=== PATIENT | male | born 1960 | race Caucasian/White ===

== ENCOUNTER 2021-01-07 01:54 | Observation (INO) | payer OTHER ==
[~2021-01-07] VITALS: Ht 177.8 cm; Wt 72.6 kg
[2021-01-07 02:01] VITALS: BP 117/82
[2021-01-07 02:44] LABS: ABSOLUTE NEUTROPHILS 3.7 thou/uL (1.4-8.2); BASOPHILS 0.7 % (0.0-2.0); EOSINOPHILS 1.9 % (0.0-3.0); HEMATOCRIT 47.2 % (42.0-52.0); LYMPHOCYTES 29.2 % (24.0-44.0); MCH 34.6 pg (26.0-34.0); MCHC 31.9 g/dL (28.0-37.0); MCV 108.6 fL (80.0-100.0); MONOCYTES 3.7 % (1.0-8.0); PLATELET COUNT 161 thou/uL (150-400); POLYS 64.5 % (36.0-66.0); RBC 4.35 mil/uL (4.50-6.00); RDW 16.2 % (10.5-14.5); WBC 5.7 thou/uL (4.0-11.0)
[2021-01-07 02:45] LABS: URINE BILIRUBIN NEGATIVE (Negative); URINE BLOOD TRACE (Negative); URINE CLARITY CLEAR; URINE COLOR YELLOW; URINE GLUCOSE-RANDOM* 2+ (Negative); URINE KETONES NEGATIVE (Negative); URINE LEUKOCYTES-REFLEX NEGATIVE (Negative); URINE NITRITE-REFLEX NEGATIVE (Negative); URINE PROTEIN (DIPSTICK) 2+ (Negative); URINE SPECIFIC GRAVITY >= 1.030 (1.005-1.035)
[2021-01-07 02:53] LABS: ANION GAP 14 mmol/L (7-16); BUN 19 mg/dL (7-18); CALCIUM 8.2 mg/dL (8.5-10.1); CHLORIDE 103 mmol/L (98-107); CO2 27 mmol/L (21-32); CREATININE 1.4 mg/dL (0.7-1.3); GLUCOSE 261 mg/dL (74-106); POTASSIUM 5.3 mmol/L (3.5-5.1); SODIUM 144 mmol/L (136-145)
[2021-01-07 02:57] LABS: AMP/METHAMP Negative (Negative); BARBITURATES Negative (Negative); BENZODIAZEPINES POSITIVE (Negative); COCAINE Negative (Negative); METHADONE Negative (Negative); OPIATES POSITIVE (Negative); PCP Negative (Negative)
[2021-01-07 03:03] LABS: INR 1.1; PROTIME 12.4 Seconds (9.3-11.4)
[2021-01-07 03:05] LABS: ALBUMIN 3.8 g/dL (3.4-5.0); SGOT 51 U/L (15-37); SGPT 43 U/L (30-65); TOTAL BILIRUBIN 0.7 mg/dL (0.2-1.0); TOTAL PROTEIN 7.8 g/dL (6.4-8.2); TROPONIN-I <0.06 ng/mL (<0.06)
[2021-01-07 03:17] LABS: HYALINE CASTS 4-10 Moderate /LPF (None Seen); MUCUS 4-6 Moderate strn/LPF (None Seen); SQUAMOUS None Seen /LPF (0-3); URINE WBC-REFLEX 0-5 Rare /HPF (0-5)
[2021-01-07 03:18] LABS: BACTERIA-REFLEX None Seen /HPF (None Seen); CRYSTALS None Seen /LPF (None Seen); URINE RBC 0-2 Rare /HPF (0-2)
[2021-01-07] MEDS ORDERED: PROAIR HFA8.5 GM INH (04:07)
[2021-01-07] MEDS ORDERED: ZOLPIDEM TARTRA10 MG PO (04:07)
[2021-01-07] MEDS ORDERED: XARELTO20 MG PO (04:07)
[2021-01-07] MEDS ORDERED: CLONAZEPAM 1 MG1 M1 PO (04:08)
[2021-01-07] MEDS ORDERED: NORCO 10-325 T1 EACH PO (04:08)
[2021-01-07] MEDS ORDERED: PROTONIX40 M2 PO (04:09)
[2021-01-07] MEDS ORDERED: DILTIAZEM 24HR240 M1 PO (04:09)
[2021-01-07] MEDS ORDERED: LEVOTHYROXINE100 MCG PO (04:09)
[2021-01-07] MEDS ORDERED: ONDANSETRON ODT4 MG PO (04:10)
--- NOTE | 2021-01-07 07:00 | NUR ---
PATIENT CONFUSED, TRYING TO REMOVE MONITORING EQUIPMENT. C/O SHORTNESS OF BREATH, NEEDING INHALER. LUNGS COARSE WITH AUDIBLE WHEEZING. REMOVES NC FREQUENTLY, SATS IN 60'S-70'S ON ROOM AIR. NRB APPLIED. C/O CHEST PAIN - POINTING ALL OVER CHEST. DID HAVE COMPRESSIONS PERFORMED LAST NIGHT DURING RESUSCITATION EFFORTS. I NOTIFIED [facility] ELECTRONIC PAGINATION SYSTEM OPERATOR. GIVEN ORDER FOR EKG, TROPONIN. GIVEN NARCAN 0.4 MG IV IN TWO SLOW DIVIDED AMOUNTS.
[2021-01-07 13:02] VITALS: BP 106/66
--- NOTE | 2021-01-07 15:36 | EKG ---
[address] [address] ELECTROCARDIOGRAM REPORT Name: JATIN WARE Room #: 170-12 [facility] M..#: [id number] Admission: 01/07/21 Attend Phys: Armond Stephens MD Discharge: Date of : 56 Report #: [id number] [facility] ED Test Date: 2021-01-07 Test Time: 02:12:20 Pat Name: JATIN WARE Department: Room: 170 12 Gender: M Senior Training Specialist: ping jackman : 1960 Requested By: Armond Stephens Order Number: [id number] : Gerry Mazariegos Measurements Intervals [place] Rate: 127 P: NC: QRS: 95 QRSD: 95 T: 46 QT: 345 QTc: 502 Interpretive Statements Atrial fibrillation Anterior infarct, old Compared to ECG 09/29/2007 15:16:35 Myocardial infarct finding now present Sinus rhythm no longer present Electronically Signed On 01-07-2021 15:36:40 FREE LANCE ARTIST by Gerry Mazariegos [email or web address] <ELECTRONICALLY SIGNED> By: Gerry Mazariegos MD, [facility] 01/07/21 1536 1 1 Gerry Mazariegos MD, FAC /EPI
--- NOTE | 2021-01-07 15:37 | EKG ---
[address] [place] [address] ELECTROCARDIOGRAM REPORT Name: JATIN WARE Room #: 170-12 [facility] M.R.#: [id number] Admission: 01/07/21 Attend Phys: Armond Stephens MD Discharge: Date of : 56 Report #: [id number] [facility] ED Test Date: 2021-01-07 Test Time: 07:18:31 Pat Name: JATIN WARE Department: Room: 170 Gender: M Physiotherapy Assistant: unknown : 1960 Requested By: Jorge Beverly Order Number: [id number] MD: Gerry Mazariegos Measurements Intervals [place] Rate: 116 P: VT: QRS: 60 QRSD: 128 T: 61 QT: 349 QTc: 485 Interpretive Statements Atrial fibrillation Ventricular bigeminy Right bundle branch block Compared to ECG 09/29/2007 15:16:35 Ventricular premature complex(es) now present Right bundle-branch block now present ST (T wave) deviation now present Sinus rhythm no longer present Electronically Signed On 01-07-2021 15:37:01 SHIPPING HELPER by Gerry Mazariegos [email or web address] <ELECTRONICALLY SIGNED> By: Gerry Mazariegos MD, [facility] 01/07/21 1537 7 7 Gerry Mazariegos MD, [facility] /EPI
--- NOTE | 2021-01-07 15:37 | EKG ---
[address] [place] [employer] [place] [address] ELECTROCARDIOGRAM REPORT Name: JATIN WARE Room #: 170-12 [facility] M.R.#: [id number] Admission: 01/07/21 Attend Phys: Armond Stephens MD Discharge: Date of : 56 Report #: [id number] [facility] ED Test Date: 2021-01-07 Test Time: 07:20:22 Pat Name: JATIN WARE Department: Room: 170 12 Gender: M Boxing Instructor: unknown : 1960 Requested By: Khalida Espinosa Order Number: [id number] MD: Gerry Mazariegos Measurements Intervals [place] Rate: 103 P: [place]: QRS: 74 QRSD: 87 T: 75 QT: 340 QTc: 445 Interpretive Statements Atrial fibrillation Ventricular premature complex Anterior infarct, old Compared to ECG 01/07/2021 07:18:31 Right bundle-branch block no longer present ST (T wave) deviation no longer present Myocardial infarct finding still present Electronically Signed On 01-07-2021 15:37:06 ARMED CUSTOM PROTECTION OFFICER by Gerry Mazariegos [email or web address] <ELECTRONICALLY SIGNED> By: Gerry Mazariegos MD, [facility] 01/07/21 1537 9 9 Gerry Mazariegos MD, [facility] /EPI
[2021-01-07 16:55] VITALS: BP 100/66
[2021-01-07 17:38] VITALS: BP 112/76
[2021-01-07 18:00] VITALS: BP 124/72
--- NOTE | 2021-01-07 18:41 | NUR ---
ASSUMED CARE OF PT AT APPROX 1750 FROM ER. PT ORIENTED AND SETTLED IN ROOM. ADMISSION ASSESSMENT, HISTORY AND EDUCATION COMPLETE. PT RESTING COMFORTABLY. WILL MONITOR FOR CHANGES AND REPORT OFF TO NOC NURSE.
[2021-01-07 19:45] VITALS: BP 98/77
[2021-01-08 00:45] VITALS: BP 121/76
[2021-01-08 04:45] VITALS: BP 102/68
[2021-01-08 05:41] LABS: CALCIUM 8.2 mg/dL (8.5-10.1); POTASSIUM 4.4 mmol/L (3.5-5.1)
[2021-01-08 07:30] VITALS: BP 117/66
--- NOTE | 2021-01-08 09:31 | EKG ---
[address] [address] ELECTROCARDIOGRAM REPORT Name: JATIN WARE Room #: 215-P ADM IN M.R.#: [id number] Admission: 01/07/21 Attend Phys: Armond Stephens MD Discharge: Date of : 56 Report #: [id number] [facility] Test Date: 2021-01-08 Test Time: 08:26:23 Pat Name: JATIN WARE Department: Room: 215 P Gender: M Oil Well Shooter: BC : 1960 Requested By: Armond Stephens Order Number: [id number] MD: Gerry Mazariegos Measurements Intervals [place] Rate: 77 P: VT: QRS: -34 QRSD: 91 T: 44 QT: 357 QTc: 404 Interpretive Statements Atrial fibrillation Left axis deviation Low voltage, extremity leads Abnormal R-wave progression, late transition Compared to ECG 01/07/2021 07:20:22 Left-axis deviation now present Low QRS voltage now present Ventricular premature complex(es) no longer present Myocardial infarct finding no longer present Electronically Signed On 01-08-2021 9:31:01 SEARCH ENGINE OPTIMIZATION MANAGER by Gerry Mazariegos [email or web address] <ELECTRONICALLY SIGNED> By: Gerry Mazariegos MD, FAC 01/08/2131 5 5 Gerry Mazariegos MD, [facility] /EPI
[2021-01-08 12:00] VITALS: BP 129/60
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
[2021-01-08 15:40] VITALS: BP 110/64
[2021-01-08 20:06] VITALS: BP 142/74
[2021-01-09 00:30] VITALS: BP 131/76
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
[2021-01-09 04:46] VITALS: BP 125/75
[2021-01-09 07:49] VITALS: BP 117/67
--- NOTE | 2021-01-09 11:57 | NUR ---
ASSUMED CARE AT [facility]. ALERTX4 NON CARDIAC PAIN TX WITH PRN MEDICATIONS. INDEPENDENT WITH ADL'S. CHRONIC AFIB CONTROLED RATE. PT TO DC TODAY. VOUCER RIDE FOR HOME.
[2021-01-09 11:59] VITALS: BP 117/67
[2021-01-09 12:39] VITALS: BP 128/66
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
== END 2021-01-09 14:59 | disposition home or self-care (01) ==
LOC: ER 01:54 → EROBS 04:30 → 2N 04:30
PROVIDERS: Emergency Medicine; Nurse Practitioner Family; ADMIT Hospitalist; ATTEND Hospitalist
DX: I48.20 Chronic atrial fibrillation, unspecified (principal); G93.40 Encephalopathy, unspecified; E03.9 Hypothyroidism, unspecified; K21.9 Gastro-esophageal reflux disease without esophagitis; G89.4 Chronic pain syndrome; F41.9 Anxiety disorder, unspecified; G47.00 Insomnia, unspecified; Z98.890 Other specified postprocedural states; Z79.01 Long term (current) use of anticoagulants; Z20.828 Contact with and (suspected) exposure to other viral communicable diseases
CPT/HCPCS: 10081